=== PATIENT | male | born 1995 | race Caucasian/White ===

== ENCOUNTER 2018-11-04 20:56 | Emergency (ER) | payer BC ==
[~2018-11-04] VITALS: Ht 182.9 cm; Wt 65.9 kg
[2018-11-04 21:02] VITALS: TEMP 99
[2018-11-04 23:08] VITALS: BP 135/81; PULSE 92
== END 2018-11-04 23:08 | disposition home or self-care (01) ==
LOC: COL.ER 20:56
DX: S61.210A Laceration without foreign body of right index finger without damage to nail, initial encounter (principal); S61.216A Laceration without foreign body of right little finger without damage to nail, initial encounter; F17.210 Nicotine dependence, cigarettes, uncomplicated; W22.8XXA Striking against or struck by other objects, initial encounter; Y92.009 Unspecified place in unspecified non-institutional (private) residence as the place of occurrence of the external cause